=== PATIENT | male | born 1965 | race Two or more races ===

== ENCOUNTER 2024-08-13 19:13 | Inpatient (IN) | payer OTHER ==
[2024-08-13] MEDS ORDERED: MAG HYDROX/AL HYDROX/SIMETH 30 ML UNIT-DOSE CUP PO PRN (20:54)
[2024-08-13] MEDS ORDERED: guaiFENesin 600 MG TABLET.ER (FP) PO PRN (20:54)
[2024-08-13] MEDS ORDERED: MAGNESIUM HYDROX 2400MG/30ML ORAL SUSPENSION 30 ML CUP PO PRN (20:54)
[2024-08-13] MEDS ORDERED: ACETAMINOPHEN 325 MG TABLET (FP) PO PRN (20:54)
[2024-08-13] MEDS ORDERED: IBUPROFEN 600 MG TABLET (FP) PO PRN (20:54)
[2024-08-13] MEDS ORDERED: BISMUTH SUBSALICYLATE 524 MG/30 ML PO PRN (20:54)
[2024-08-13] MEDS ORDERED: NALOXONE (NARCAN) HCL 4 MG/0.1 ML SPRAY NS PRN (20:54)
[2024-08-13] MEDS ORDERED: BENZONATATE 200 MG CAPSULE PO PRN (20:54)
[2024-08-13] MEDS ORDERED: IBUPROFEN 400 MG TABLET (FP) PO PRN (20:54)
[2024-08-13] MEDS ORDERED: hydrOXYzine PAMOATE 25 MG CAPSULE (FP) PO PRN (20:54)
[2024-08-13] MEDS ORDERED: POLYETHYLENE GLYCOL (HEALTHYLAX) 3350 17 GM PACKET PO PRN (20:54)
[2024-08-13] MEDS ORDERED: ONDANSETRON *ODT* 4 MG TABLET SL PRN (20:54)
[2024-08-13] MEDS ORDERED: LOPERAMIDE HCL 2 MG CAPSULE PO PRN (20:54)
[2024-08-13] MEDS ORDERED: METHOCARBAMOL 500 MG TABLET PO PRN (20:54)
[2024-08-13] MEDS ORDERED: BENZOCAINE/MENTHOL (CHLORASEPTIC ) LOZENGE MM PRN (20:54)
[2024-08-13] MEDS ORDERED: diazePAM 5 MG TABLET PO PRN (21:29)
[2024-08-13] MEDS: MELATONIN 5 MG TABLETS PO SCH (22:40)
[2024-08-13] MEDS: THIAMINE 100 MG TABLET PO SCH (22:41)
[2024-08-13] MEDS: diazePAM 5 MG TABLET PO SCH (22:43)
[2024-08-13] MEDS: DICYCLOMINE HCL 10 MG CAPSULE PO PRN (22:43)
[2024-08-14] MEDS: PRENATAL VITAMINS W/ FOLIC ACID TABLET (FP) PO SCH (10:07)
[2024-08-14 10:19] LABS: HEMATOCRIT 38.5 % (35.4-49); HEMOGLOBIN 13.1 GM/dL (11.7-16.9); MCH 31.5 pg (25.7-33.7); MCHC 34.1 g/dl (32.0-35.9); MEAN CELL VOLUME 92.3 fl (80-96); MEAN PLT VOLUME 7.2 fl (7.5-11.1); PLATELET COUNT 206 10^3/uL (134-434); RBC 4.17 M/mm3 (4.00-5.60); RDW 15.2 % (11.9-15.9); WHITE BLOOD COUNT 4.4 K/mm3 (4.0-10.0)
[2024-08-14 10:21] LABS: POTASSIUM 3.2 mmol/L (3.5-5.1)
[2024-08-14 10:23] LABS: ALBUMIN 3.6 g/dl (3.4-5.0)
[2024-08-14 10:24] LABS: BLOOD UREA NITROGEN 5.9 mg/dL (7-18)
[2024-08-14 10:26] LABS: CREATININE 0.7 mg/dL (0.55-1.3); TOT PROT 6.8 g/dl (6.4-8.2)
[2024-08-14] MEDS: POTASSIUM CHLORIDE ORAL LIQUID 20 MEQ/15 ML PO SCH (11:19)
[2024-08-14] MEDS: MELATONIN 5 MG TABLETS PO SCH (22:41)
[2024-08-15] MEDS: diazePAM 5 MG TABLET PO SCH (05:39)
[2024-08-15 18:28] LABS: POTASSIUM 4.3 mmol/L (3.5-5.1)
[2024-08-15 18:35] LABS: BLOOD UREA NITROGEN 9.1 mg/dL (7-18); CALCIUM 10.2 mg/dL (8.5-10.1)
[2024-08-15 18:38] LABS: CREATININE 0.9 mg/dL (0.55-1.3)
[2024-08-15 18:40] LABS: TOT PROT 7.8 g/dl (6.4-8.2)
[2024-08-16] MEDS: diazePAM 5 MG TABLET PO SCH (05:40)
[2024-08-16] MEDS: NALOXONE (NYS OPIOID OVERDOSE PROGRAM) 4 MG/0.1 ML SPRAY NS SCH (11:44)
[2024-08-17] MEDS: diazePAM 5 MG TABLET PO ONE (05:49)
[2024-08-17 06:43] VITALS: RESP 16
[2024-08-17 08:39] VITALS: BP 110/65; PULSE 63; TEMP 98
== END 2024-08-17 10:25 | disposition home or self-care (01) | DRG 775 ==
LOC: YASAS 19:13 → Y6N 21:37
PROVIDERS: ADMIT Allergy & Immunology; ATTEND Surgery
PROC: HZ2ZZZZ Detoxification Services for Substance Abuse Treatment (ICD-10-PCS; principal; 2024-08-13)
DX: F10.230 Alcohol dependence with withdrawal, uncomplicated (principal); F10.280 Alcohol dependence with alcohol-induced anxiety disorder; F10.282 Alcohol dependence with alcohol-induced sleep disorder; F10.24 Alcohol dependence with alcohol-induced mood disorder; F41.9 Anxiety disorder, unspecified; F32.A Depression, unspecified; R74.8 Abnormal levels of other serum enzymes
CPT/HCPCS: 36415; 80053; 80305; 85027; 86780; 86803; 93005; 93010